=== PATIENT | male | born 2000 | race Caucasian/White ===

== ENCOUNTER 2024-12-15 20:02 | Emergency (ER) | payer OTHER, SELFPAY ==
[2024-12-15 20:10] VITALS: BP 163/99
[2024-12-15 20:22] VITALS: BP 154/87
[2024-12-15 20:39] VITALS: BMI 19.3
[2024-12-15 20:39] LABS: % Basophils 0.4 % (0-2); % Eosinophils 1.6 % (0-6); % Immature Granulocytes 0.2 % (0-0.5); % Lymphocytes 30.1 % (20.5-51.1); % Monocytes 6.6 % (1.7-9.3); % Neutrophils 61.1 % (42.2-75.2); Absolute Eosinophils 0.1 10^3/uL (0-0.7); Absolute Lymphocytes 2.5 10^3/uL (1.2-3.4); Absolute Monocytes 0.6 10^3/uL (0.1-0.6); Absolute Neutrophils 5.1 10^3/uL (1.4-6.5); Hematocrit 42.7 % (39.0-52.0); Hemoglobin 15.5 g/dL (13.0-18.0); Mean Corp Hgb Conc. 36.3 g/dL (33.0-37.0); Mean Corpuscular Hgb 27.5 pg (27.0-31.0); Mean Corpuscular Volume 75.8 fL (80.0-94.0); Nucleated Red Blood Cells % 0 % (-); Platelet Count 343 10^3/uL (130-400); Red Blood Cell Count 5.63 10^6/uL (4.70-6.10); Red Cell Dist. Width 11.9 % (11.5-14.5); White Blood Cell Count 8.4 10^3/uL (4.8-10.8)
--- NOTE | 2024-12-15 20:40 | ED.GENMED ---
History of Present Illness
<Rod Fontanez, DO - Last Filed: 12/15/24 21:23>
General
Chief Complaint: Heart Rate Problem
Time Seen by Provider: 12/15/24 20:30
<Roz Almonte MD, Resident - Last Filed: 12/15/24 22:25>
General
Source: patient
Exam Limitations: none
Nursing documentation reviewed up to this point in time: agreed with
History of Present Illness
History of Present Illness:
24yo M with no significant PMH who presents from home to ED for 4 days of palpitations and feeling like his heart is racing. The palpitations were initially intermittent, however they have been nearly constant over the past day. He has been feeling
anxious from the palpitations. Denies chest pain/pressure, cough, lightheadedness, dehydration. He took his blood pressure at home with an automatic cuff and his BP was 147/96 with HR 94. He quit daily weed and daily zyn pouches 5 days ago.
Past History
<Roz Almonte MD, Resident - Last Filed: 12/15/24 22:25>
Past History
ED Past Medical History: None
ED Past Surgical History: Orthopedic (R arm)
Patient has exhibited threatening behavior?: No
Social History
Tobacco: Non-smoker
Alcohol: Occasional
Drug: Marijuana (daily) and Other (zyn daily)
Personal: Single
Living: with family
Review of Systems
<Roz Almonte MD, Resident - Last Filed: 12/15/24 22:25>
Review of Systems
Allergies reviewed?: Yes
Constitutional: Reports no symptoms; Denies fever, fatigue or chills
EENT: Reports no symptoms
Respiratory: Reports no symptoms; Denies cough or trouble breathing
Cardiac: Reports palpitations; Denies chest pain, diaphoresis or syncope
ABD/GI: Reports no symptoms; Denies abdominal pain, nausea, vomiting, diarrhea, constipated, bloody stools or black stools
: Reports no symptoms; Denies dysuria or difficulty voiding
Musculoskeletal: Reports no symptoms
Skin: Reports no symptoms
Neurological: Reports no symptoms
Endocrine: Reports no symptoms
Hematologic/Lymphatic: Reports no symptoms
Psychiatric: Reports anxiety
Phy Exam
<Roz Almonte MD, Resident - Last Filed: 12/15/24 22:25>
General Physical Exam
General Presentation: well appearing and no apparent distress
General age: appears stated age
General Skin: warm and dry
General Habitus: normal
General Mental: alert
General Hydration: appears well hydrated
Cardiovascular Exam
Cardiovascular Exam: no edema and irregularly irregular
Pulmonary Exam
Pulmonary Exam: lungs clear and no respiratory distress
Oxygen Status: room air
Gastrointestinal Exam
Gastrointestinal Exam: non tender, soft and non distended
Neurological Exam
Neurological Exam: alert
Psychiatric Exam
Psychiatric Exam: normal mood/affect
Course
<Rod Fontanez, DO - Last Filed: 12/15/24 21:23>
Orders/Labs/Results
Orders:
Orders
12/15/24 20:03
Electrocardiogram (*1) Urgent
Reason for Study: Tachycardia
12/15/24 20:04
EKG- Treatment ONCE
12/15/24 20:16
Basic Metabolic Panel Urgent
Complete Blood Count/With Diff Urgent
Magnesium Urgent
TSH Reflex To Free T4 Urgent
12/15/24 21:28
Propranolol [Inderal] 10 mg PO NOW STA
Abnormal Lab Results
12/15/24
20:16
MCV 75.8 L fL
(80.0-94.0)
MPV 11.0 H fL
(7.4-10.4)
Carbon Dioxide 21 L mmol/L
(22-30)
Glucose 104 H mg/dl
(70-99)
Calcium 10.4 H mg/dl
(8.4-10.2)
12/15/24 20:16
12/15/24 20:16
Vital Signs
Initial and Last Documented VS:
Initial Vital Signs
Temp Pulse Resp BP Pulse Ox
98.1 F 94 20 163/99 99
12/15/24 20:10 12/15/24 20:10 12/15/24 20:10 12/15/24 20:10 12/15/24 20:10
Last Documented Vital Signs
Temp Pulse Resp BP Pulse Ox
98.1 F 88 11 148/90 100
12/15/24 20:10 12/15/24 21:38 12/15/24 21:38 12/15/24 21:38 12/15/24 21:38
<Roz Almonte MD, Resident - Last Filed: 12/15/24 22:25>
Orders/Labs/Results
Orders:
Orders
12/15/24 20:03
Electrocardiogram (*1) Urgent
Reason for Study: Tachycardia
12/15/24 20:04
EKG- Treatment ONCE
12/15/24 20:16
Basic Metabolic Panel Urgent
Complete Blood Count/With Diff Urgent
Magnesium Urgent
TSH Reflex To Free T4 Urgent
12/15/24 21:28
Propranolol [Inderal] 10 mg PO NOW STA
Abnormal Lab Results
12/15/24
20:16
MCV 75.8 L fL
(80.0-94.0)
MPV 11.0 H fL
(7.4-10.4)
Carbon Dioxide 21 L mmol/L
(22-30)
Glucose 104 H mg/dl
(70-99)
Calcium 10.4 H mg/dl
(8.4-10.2)
12/15/24 20:16
12/15/24 20:16
Vital Signs
Initial and Last Documented VS:
Initial Vital Signs
Temp Pulse Resp BP Pulse Ox
98.1 F 94 20 163/99 99
12/15/24 20:10 12/15/24 20:10 12/15/24 20:10 12/15/24 20:10 12/15/24 20:10
Last Documented Vital Signs
Temp Pulse Resp BP Pulse Ox
98.1 F 88 11 148/90 100
12/15/24 20:10 12/15/24 21:38 12/15/24 21:38 12/15/24 21:38 12/15/24 21:38
<Roz Almonte MD, Resident - Last Filed: 12/15/24 22:25>
MDM/Problems Addressed
Differential Diagnosis Includes:
arrhythmia, synthetic cannabinoid withdrawal
MDM/Problems Addressed:
24yo M presenting for palpitations/racing heart.
EKG with sinus tachycardia.
Continuous property assessment monitor reviewed-- notable for sinus arrhythmia here though he is not reporting palpitations while in ED.
CBC, BMP, TSH pending.
Anticipate discharge home with follow up with PCP and possible outpatient holter monitor.
<Roz Almonte MD, Resident - Last Filed: 12/15/24 22:25>
*Critical Care Note
Total Time (30-74mins, 75-104mins- exclusive of procedures): Not Applicable
<Roz Almonte MD, Resident - Last Filed: 12/15/24 22:25>
Update Note
Update Note:
CBC, BMP unremarkable. TSH wnl.
Patient did have brief symptomatic palpitations that corresponded with HR 150s on the monitor. Possible SVT vs sinus tachycardia. HR improved to 100s without intervention. Unknown etiology of tachycardia, may be related to synthetic cannabinoid
withdrawal. Will treat symptomatic tachycardia with dose of propranol here and rx 10mg TID prn at discharge. Anticipate discharge home with PCP follow up and holter monitoring. Discussed with patient and mother at bedside extensively.
ED Attending Note
<Rod Fontanez DO - Last Filed: 12/15/24 21:23>
ED Attending Note
Patient seen and examined by attending physician: Yes
I performed the substantive portion of visit, reviewed & personally made and approve the management plan that is documented in note by myself or PAOLA.: Yes
ED Attending Note:
I have seen and evaluated the patient with a [id number] encounter. I have spoken to the resdient and involved in the medical history, the physical exam, medical decision making.
Evaluation and management service: agree unless noted differently below.
Results interpretation: agree unless noted differently below.
Focused HPI: 24-year-old male presenting with palpitations of the past few days. He states he feels like his heart is racing. He denies chest pain, shortness of breath or any recent travel
Physical exam: Sitting in bed comfortably. Heart regular rate and rhythm. No murmur. No leg edema or tenderness
Medical Decision Making: We discussed palpitations. Patient is feeling better on arrival. I discussed that I cannot fully rule out cardiac arrhythmia such as A-fib or SVT when his symptoms occurred mostly at home. We discussed normal workup in
the emergency department but discussed having his PCP further evaluated him and we discussed possible Holter monitor but this should be discussed with his PCP
Update 9:20 PM patient felt symptomatic and telemetry showed evidence of short run of SVT. Will consider propranolol prn
<Roz Almonte MD, Resident - Last Filed: 12/15/24 22:25>
-
Portions of this chart may have been created with voice recognition software.� Occasional wrong word or��sound alike� substitutions may have occurred due to the inherent limitations of voice recognition software.
Discharge Plan
Departure
Patient Disposition: Home (Routine Discharge)
Date of Disposition: 12/15/24
Time of Disposition: 22:14
Patient with high blood pressure during this ER visit?: Yes
Discharge Problem:
Tachycardia, paroxysmal
Instructions: Palpitations ED, BLOOD PRESSURE
Prescriptions:
New
propranolol 10 mg tablet
10 mg PO TID PRN (Reason: palpitations, racing heart) Qty: 14 0RF
Referrals:
Maxime Montes, [Family Provider] - Follow up in 5-7 days (Call your Primary Care Provider to schedule an appointment within 1 week of being seen in Emergency Room. )
Activity Restrictions/Additional Instructions:
You were seen in the Emergency Room for palpitations.
Your blood work was normal. Your TSH (measuring thyroid function) was normal.
Your property assessment monitor here showed a brief period of elevated heart rate that corresponded with your symptoms.
You were given a dose of propranolol and a prescription has been sent to your pharmacy.
Call your Primary Care Provider to schedule an appointment and holter monitor (monitoring your heart rate and rhythm continuously while you go about your daily activities). You should also have your blood pressure rechecked by your Primary Care
Provider because it was elevated today.
Return to the Emergency Room for worsening symptoms, chest pain, difficulty breathing, or new concerns.
Interventions
Interventions:
*Risk Screen - Suicide Last Done: 12/15/24 20:39
*General Assessment Last Done: 12/15/24 20:10
*Neglect/Abuse Screening Last Done: 12/15/24 20:39
ED- Fall Risk Assessment Last Done: 12/15/24 20:39
*ED COVID-19 Vaccine History Last Done: 12/15/24 20:39
ED- Cardiac Assessment Last Done: 12/15/24 20:40
ED- Pulmonary Assessment Last Done: 12/15/24 20:40
Discharge Date and Time
Print Language: GREEK
[2024-12-15 20:49] LABS: Blood Urea Nitrogen 14 mg/dl (9-20); Calcium 10.4 mg/dl (8.4-10.2); Carbon Dioxide 21 mmol/L (22-30); Chloride 101 mmol/L (98-107); Estimated Creatinine Clearance > 125 ml/min; Glucose 104 mg/dl (70-99); Magnesium 2.1 mg/dl (1.6-2.3); Potassium 4.4 mmol/L (3.5-5.1); Sodium 137 mmol/L (135-145); eGFR > 60.00
[2024-12-15 21:00] VITALS: BP 138/81
[2024-12-15 21:19] LABS: TSH Reflex To Free T4 3.46 uIU/ml (0.47-4.68)
[2024-12-15 21:38] VITALS: BP 148/90
[2024-12-15] MEDS: INDERAL 10 MG PO (21:38)
[2024-12-15 22:00] VITALS: BP 126/85
== END 2024-12-15 22:32 | disposition home or self-care (01) ==
LOC: EMR 20:02
PROVIDERS: Emergency Medicine; EMERGENCY PHYSICIAN Student in an Organized Health Care Education/Training Program; FAMILY PHYSICIAN Family Medicine
DX: R00.0 Tachycardia, unspecified (principal); R03.0 Elevated blood-pressure reading, without diagnosis of hypertension
CPT/HCPCS: 99284; 80048; 83735; 84443; 85025; 93005